=== PATIENT | male | born 1960 | race Caucasian/White ===

== ENCOUNTER 2017-02-16 12:46 | Emergency (ER) | payer SELFPAY ==
[~2017-02-16] VITALS: Ht 172.7 cm; Wt 93.0 kg
[~2017-02-16 12:46] MED LIST: HYDR-3533 PO; LORTA5 PO
[2017-02-16 12:52] VITALS: BP 138/74; PULSE 87; RESP 16; TEMP 98.6; O2SAT 99
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
[2017-02-16] MEDS ORDERED: RABIES VACCINE HUMAN DIPL CELL 2.5 UNITS/ML SYRINGE IM ONE (13:30)
[2017-02-16] MEDS ORDERED: RABIES IMMUNE GLOBULIN INJ 1,500 UNITS/10 ML VIAL IM ONE (13:30)
[2017-02-16] MEDS ORDERED: AMOXICILLIN/CLAVULANATE K 875 MG TAB PO ONE (13:30)
[2017-02-16 13:33] VITALS: BP 113/60; PULSE 74; RESP 18; TEMP 98.5; O2SAT 96
[2017-02-16] MEDS ORDERED: AUGM875T3 PO (13:41)
[2017-02-16] MEDS ORDERED: KETOROLAC TROMETHAMINE 60 MG/2 ML (IM) VIAL IM ONE (13:45)
[2017-02-16] MEDS ORDERED: traMADol HCL 50 MG TAB PO ONE (14:45)
== END 2017-02-16 15:06 | disposition home or self-care (01) ==
LOC: NEPD 12:46
DX: S91.352A Open bite, left foot, initial encounter (principal); W55.01XA Bitten by cat, initial encounter; L03.116 Cellulitis of left lower limb; Z23 Encounter for immunization
CPT/HCPCS: 90375; 90471; 90675; 96372; 99284; J1885

== ENCOUNTER 2017-02-21 10:13 | Emergency (ER) | payer SELFPAY ==
[~2017-02-21] VITALS: Ht 172.7 cm; Wt 110.0 kg
[~2017-02-21 10:13] MED LIST changes: +AUGM875T3 PO
[2017-02-21] MEDS ORDERED: IOHEXOL 350 MG/ML 10 ML VIAL (for RAD DIAG) IVCONTRAST ONE (10:14)
[2017-02-21 10:16] VITALS: BP 189/101; PULSE 89; RESP 15; TEMP 98.4; O2SAT 99
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
[2017-02-21 11:15] LABS: AUTOMATED NEUTROPHIL # 3.6 TH/MM3 (1.8-7.7); BASOPHIL % 0.5 % (0.0-2.0); EOSINOPHIL # 0.1 TH/MM3 (0-0.4); EOSINOPHIL % 1.5 % (0.0-4.0); HEMATOCRIT 41.8 % (39.0-51.0); HEMO FLAGS DIFF FINAL; LYMPHOCYTE # 1.3 TH/MM3 (1.0-4.8); MEAN CELL VOLUME 97.6 FL (80.0-100.0); MEAN CORPUSCULAR HEMOGLOBIN 33.3 PG (27.0-34.0); MEAN CORPUSCULAR HGB CONC 34.1 % (32.0-36.0); MONO % 9.3 % (0.0-8.0); NEUT % 65.7 % (16.0-70.0); PLATELET COUNT 188 TH/MM3 (150-450); RED BLOOD COUNT 4.28 MIL/MM3 (4.50-5.90); RED CELL DISTRIBUTION WIDTH 13.5 % (11.6-17.2); WHITE BLOOD COUNT 5.5 TH/MM3 (4.0-11.0)
[2017-02-21 11:23] LABS: INTERNATIONAL NORMALIZED RATIO 0.9 RATIO
[2017-02-21 11:33] LABS: APTT (PATIENT) 24.1 SEC (24.3-30.1)
[2017-02-21 11:37] LABS: BICARBONATE 24.7 MEQ/L (21.0-32.0)
[2017-02-21 11:39] LABS: POTASSIUM 4.8 MEQ/L (3.5-5.1)
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
[2017-02-21] MEDS ORDERED: oxyCODONE/ACETAMINOPHEN 5 MG/325 MG TAB PO ONE (15:00)
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
[2017-02-21 15:32] VITALS: BP 159/75; PULSE 78; RESP 20; O2SAT 99
[2017-02-21] MEDS ORDERED: TYLETAB34 PO (15:45)
== END 2017-02-21 16:50 | disposition home or self-care (01) ==
LOC: NEPC 10:13
DX: S09.90XA Unspecified injury of head, initial encounter (principal); R10.9 Unspecified abdominal pain; S00.83XA Contusion of other part of head, initial encounter; M54.2 Cervicalgia; M79.645 Pain in left finger(s); F17.200 Nicotine dependence, unspecified, uncomplicated; Z86.79 Personal history of other diseases of the circulatory system; Y04.2XXA Assault by strike against or bumped into by another person, initial encounter
CPT/HCPCS: 70450; 70486; 72125; 73140; 74177; 80048; 85025; 85610; 85730; 99285; Q9967